=== PATIENT | female | born 2000 | race Two or more races ===

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

== ENCOUNTER → 2019-03-25 | Outpatient (CLI) | payer MEDICAID ==
--- NOTE | 2019-03-25 14:17 | KCIC ---
Indication:Irregular bleeding. TECHNIQUE: Grayscale, color Doppler and spectral waveform is of the abdomen obtained. COMPARISON:None FINDINGS: Uterus is anteverted and measures 7.7 x 3.6 x 4.3 cm (longitudinal, AP, transverse). Nabothian cysts are seen in the cervix. Endometrial stripe measures 1.1 cm and is within normal limits. Trace amount of fluid is seen in the cervical canal. Left ovary measures 2.3 x 2.6 x 4.0 cm an shows blood flow with a 1.6 x 1.7 x 1.7 cm dominant follicle. The right ovary measures 1.9 x 2.1 x 2.7 cm and shows evidence of blood flow. IMPRESSION: 1. No acute findings. Electronically signed by: Jaden Silva DO (03/25/2019 2:14 PM) [facility]
== END | disposition home or self-care (01) ==
LOC: KCIC US 11:30
PROVIDERS: ATTEND Obstetrics & Gynecology
DX: N88.8 Other specified noninflammatory disorders of cervix uteri (principal)
CPT/HCPCS: 76830; 76856